=== PATIENT | female | born 1990 | race Caucasian/White ===

== ENCOUNTER 2017-10-10 13:53 | Emergency (ER) | payer MEDICARE, MEDICAID ==
[~2017-10-10] VITALS: Ht 170.2 cm; Wt 81.8 kg
[2017-10-10 14:14] VITALS: BP 104/52
== END 2017-10-10 15:35 | disposition home or self-care (01) ==
LOC: ER 13:54
DX: Z02.89 Encounter for other administrative examinations (principal); F15.90 Other stimulant use, unspecified, uncomplicated; F11.90 Opioid use, unspecified, uncomplicated; Z59.0 Homelessness; Z56.0 Unemployment, unspecified
CPT/HCPCS: 99281

== ENCOUNTER 2019-07-28 17:27 | Emergency (ER) | payer MEDICAID, MEDICARE ==
[~2019-07-28] VITALS: Ht 170.2 cm; Wt 63.0 kg
[2019-07-28 17:43] VITALS: BP 104/64
[2019-07-28 18:29] LABS: URINE HCG NEGATIVE (NEG)
[2019-07-28 18:31] LABS: CLARITY,URINE CLEAR (Clear); COLOR,URINE YELLOW (Yellow); EOSINOPHILS # (AUTO) 0.2 X10'3 (0-0.9); GLUCOSE, URINE NEGATIVE (Neg); KETONES,URINE NEGATIVE (Neg); LEUKOCYTE ESTERASE ,URINE NEGATIVE (Neg); MONOCYTES # (AUTO) 0.6 X10'3 (0-0.9); NITRITES, URINE NEGATIVE (Neg); OCCULT BLOOD,URINE NEGATIVE (Neg); PH,URINE 7.5 (4.8-8.0); PROTEIN,URINE NEGATIVE (Neg)
[2019-07-28 18:33] LABS: BASOPHILS % (AUTO) 0.3 % (0-1); EOSINOPHILS % (AUTO) 2.4 % (0-6); HEMATOCRIT 38.9 % (35.0-45.0); LYMPHOCYTES # (AUTO) 4.1 X10'3 (1.1-4.8); MEAN CORPUSCULAR HEMOGLOBIN 27.5 PG (27.0-31.0); MEAN CORPUSCULAR HGB CONC 33.5 g/dL (33.0-36.5); MEAN PLATELET VOLUME 8.4 FL (7.4-10.4); MONOCYTES % (AUTO) 8.5 % (2-12); NEUTROPHILS # (AUTO) 2.2 X10'3 (1.8-7.7); NEUTROPHILS % (AUTO) 30.8 % (42-75); PLATELET COUNT 203 X10'3 (140-440); RED BLOOD COUNT 4.74 X10'6 (4.20-5.60); RED CELL DISTRIBUTION WIDTH 14.6 % (11.5-14.5)
[2019-07-28 18:37] LABS: UA COLLECTION TYPE CLN CATCH MIDSTREAM
[2019-07-28 18:40] LABS: URINE AMPHETAMINE SCREEN POSITIVE (Neg); URINE BARBITUATE SCREEN NEGATIVE (Neg); URINE BENZODIAZEPINES SCREEN NEGATIVE (Neg); URINE CANNABINOID SCREEN POSITIVE (Neg); URINE COCAINE SCREEN NEGATIVE (Neg); URINE METHADONE SCREEN POSITIVE (Neg); URINE OPIATE SCREEN POSITIVE (Neg); URINE PHENCYCLIDINE SCREEN NEGATIVE (Neg)
[2019-07-28 18:45] LABS: ALANINE AMINOTRANSFERASE 98 U/L (12-78); ALBUMIN 3.3 G/DL (3.4-5.0); ALBUMIN/GLOBULIN RATIO 0.8 (1.1-1.5); ALKALINE PHOSPHATASE 109 IU/L (46-116); ANION GAP 5 (8-16); ASPARTATE AMINO TRANSFERASE 72 U/L (10-37); BILIRUBIN,TOTAL 0.3 MG/DL (0.1-1.0); BLOOD UREA NITROGEN 15 MG/DL (7-18); BUN/CREATININE RATIO 18.1 (6.6-38.0); CALCIUM 8.9 MG/DL (8.5-10.1); CHLORIDE 104 MMOL/L (99-107); CREATININE 0.83 MG/DL (0.40-0.90); POTASSIUM 3.5 MMOL/L (3.5-5.1); SODIUM 138 MMOL/L (135-145); TOTAL CARBON DIOXIDE 29.1 MMOL/L (24-32); TOTAL PROTEIN 7.6 G/DL (6.4-8.2); eGFR 81 ML/MIN
[2019-07-28 18:47] LABS: GLUCOSE 71 MG/DL (70-104)
== END 2019-07-28 18:57 | disposition home or self-care (01) ==
LOC: ER 17:28
DX: R60.0 Localized edema (principal); F19.10 Other psychoactive substance abuse, uncomplicated; F41.9 Anxiety disorder, unspecified; F32.9 Major depressive disorder, single episode, unspecified; F15.90 Other stimulant use, unspecified, uncomplicated; F11.90 Opioid use, unspecified, uncomplicated; Z59.0 Homelessness; Z56.0 Unemployment, unspecified
CPT/HCPCS: 80053; 80305; 81003; 81025; 85025; 99284

== ENCOUNTER 2021-06-18 13:44 | Emergency (ER) | payer BC, MEDICARE ==
[~2021-06-18] VITALS: Ht 170.2 cm; Wt 90.0 kg
[2021-06-18 13:48] VITALS: BP 115/70
[2021-06-18] MEDS ORDERED: PENI250T2 PO (13:54)
[2021-06-18] MEDS ORDERED: NAPR-56 PO (13:54)
== END 2021-06-18 14:49 | disposition home or self-care (01) ==
LOC: ER 13:44
DX: K04.7 Periapical abscess without sinus (principal); K05.30 Chronic periodontitis, unspecified; F41.9 Anxiety disorder, unspecified; F32.A Depression, unspecified; F15.90 Other stimulant use, unspecified, uncomplicated; F11.90 Opioid use, unspecified, uncomplicated; Z56.0 Unemployment, unspecified; Z59.00 Homelessness unspecified; Z79.2 Long term (current) use of antibiotics; Z79.899 Other long term (current) drug therapy
CPT/HCPCS: 99283

== ENCOUNTER 2021-07-21 07:31 | Emergency (ER) | payer BC ==
[~2021-07-21] VITALS: Ht 170.2 cm; Wt 86.4 kg
[2021-07-21] MEDS ORDERED: PENI500T2 PO (08:46)
[2021-07-21 08:53] VITALS: BP 133/77
== END 2021-07-21 08:54 | disposition home or self-care (01) ==
LOC: ER 07:31
DX: K04.7 Periapical abscess without sinus (principal); K02.9 Dental caries, unspecified; F15.90 Other stimulant use, unspecified, uncomplicated; F11.90 Opioid use, unspecified, uncomplicated; Z56.0 Unemployment, unspecified; Z59.00 Homelessness unspecified; Z79.2 Long term (current) use of antibiotics
CPT/HCPCS: 99283

== ENCOUNTER 2022-03-04 11:45 | Emergency (ER) | payer BC, MEDICAID ==
[~2022-03-04] VITALS: Ht 170.2 cm; Wt 86.0 kg
[2022-03-04 11:48] VITALS: BP 119/83
--- NOTE | 2022-03-04 12:22 | NUR ---
TECH PLACED WALKING BOOT ONTO PT, PT STATED THEY COULD STILL FEEL AND WIGGLE THEIR TOES, TECH HAD SUPERVISOR DRY PASTE LOOK AT BOOT TO MAKE SURE EVERYTHING LOOKED OKAY BEFORE PT LEFT.
== END 2022-03-04 12:31 | disposition home or self-care (01) ==
LOC: ER 11:46
DX: S93.402A Sprain of unspecified ligament of left ankle, initial encounter (principal); F15.20 Other stimulant dependence, uncomplicated; F19.10 Other psychoactive substance abuse, uncomplicated; Z56.0 Unemployment, unspecified; Z59.00 Homelessness unspecified; X50.1XXA Overexertion from prolonged static or awkward postures, initial encounter; Y93.89 Activity, other specified; Y92.89 Other specified places as the place of occurrence of the external cause; Y99.8 Other external cause status
CPT/HCPCS: 73610; 99283; L4360

== ENCOUNTER 2022-10-21 22:09 | Emergency (ER) | payer BC, MEDICAID ==
[~2022-10-21] VITALS: Ht 170.2 cm; Wt 79.2 kg
[2022-10-22] MEDS ORDERED: BUPR8TAB4 SL (00:23)
[2022-10-22 00:37] LABS: CLARITY,URINE SLIGHTLY CLOUDY (Clear); GLUCOSE, URINE NEGATIVE (Neg); KETONES,URINE NEGATIVE (Neg); LEUKOCYTE ESTERASE ,URINE NEGATIVE (Neg); NITRITES, URINE NEGATIVE (Neg); OCCULT BLOOD,URINE NEGATIVE (Neg); PH,URINE 5.5 (4.8-8.0); PROTEIN,URINE NEGATIVE (Neg); URINE HCG NEGATIVE (NEG)
--- NOTE | 2022-10-22 00:55 | NUR ---
DIFFICULT STICK FOR LABS. MADE AWARE. PT STATES SHE USE TO USE IVDA
[2022-10-22 01:06] LABS: COLOR,URINE DARK YELLOW (Yellow); UA COLLECTION TYPE CLN CATCH MIDSTREAM
[2022-10-22 01:07] LABS: BACTERIA,URINE 2+ /HPF (Neg); MUCUS STRANDS MODERATE /LPF (Neg); RBC,URINE 0-2 /HPF (0-2); SQUAMOUS EPITHELIAL CELL,UR MANY /LPF (FEW); WBC,URINE 0-4 /HPF (0-4)
[2022-10-22 01:51] LABS: BASOPHILS % (AUTO) 0.3 % (0-1); EOSINOPHILS # (AUTO) 0.2 X10'3 (0-0.9); EOSINOPHILS % (AUTO) 1.4 % (0-6); HEMATOCRIT 43.2 % (35.0-45.0); HEMOGLOBIN 14.5 g/dl (12.0-16.0); LYMPHOCYTES # (AUTO) 3.7 X10'3 (1.1-4.8); LYMPHOCYTES % (AUTO) 32.2 % (21-51); MEAN CORPUSCULAR HEMOGLOBIN 28.6 PG (27.0-31.0); MEAN CORPUSCULAR HGB CONC 33.6 g/dL (33.0-36.5); MEAN CORPUSCULAR VOLUME 85.2 FL (78-98); MEAN PLATELET VOLUME 9.2 FL (7.4-10.4); MONOCYTES # (AUTO) 0.5 X10'3 (0-0.9); MONOCYTES % (AUTO) 4.1 % (2-12); NEUTROPHILS # (AUTO) 7.2 X10'3 (1.8-7.7); PLATELET COUNT 201 X10'3 (140-440); RED BLOOD COUNT 5.08 X10'6 (4.20-5.60); RED CELL DISTRIBUTION WIDTH 14.1 % (11.5-14.5); WHITE BLOOD COUNT 11.6 X10'3 (4.5-11.0)
[2022-10-22 01:59] LABS: ALANINE AMINOTRANSFERASE 23 U/L (12-78); ALBUMIN 3.9 G/DL (3.4-5.0); ALKALINE PHOSPHATASE 94 IU/L (46-116); ANION GAP 9 (8-16); ASPARTATE AMINO TRANSFERASE 16 U/L (10-37); BILIRUBIN,TOTAL 0.6 MG/DL (0.1-1.0); BLOOD UREA NITROGEN 12 MG/DL (7-18); BUN/CREATININE RATIO 13.5 (10.0-20.0); CALCIUM 9.3 MG/DL (8.5-10.1); CHLORIDE 103 MMOL/L (99-107); CREATININE 0.89 MG/DL (0.40-0.90); GLUCOSE 87 MG/DL (70-104); LIPASE 65 U/L (73-393); MAGNESIUM 1.9 MG/DL (1.5-2.4); POTASSIUM 3.4 MMOL/L (3.5-5.1); SODIUM 141 MMOL/L (135-145); TOTAL CARBON DIOXIDE 28.7 MMOL/L (24-32); TOTAL PROTEIN 7.8 G/DL (6.4-8.2); eGFR 74 ML/MIN
[2022-10-22 02:41] VITALS: BP 125/77
== END 2022-10-22 02:42 | disposition home or self-care (01) ==
LOC: ER 22:09
DX: R10.84 Generalized abdominal pain (principal); R30.9 Painful micturition, unspecified; F31.9 Bipolar disorder, unspecified; F15.10 Other stimulant abuse, uncomplicated; Z59.00 Homelessness unspecified; Z56.0 Unemployment, unspecified; Z79.899 Other long term (current) drug therapy
CPT/HCPCS: 36415; 80053; 81001; 81025; 83690; 83735; 84145; 85025; 99283

== ENCOUNTER 2022-11-13 11:29 | Emergency (ER) | payer BC, MEDICAID ==
[~2022-11-13] VITALS: Ht 170.2 cm; Wt 80.4 kg
[~2022-11-13 11:29] MED LIST: BUPR8TAB4 SL
[2022-11-13] MEDS ORDERED: buprenorphine/naloxone 8MG-2MG SUBlingual film SL STA (12:27)
[2022-11-13 13:17] VITALS: BP 104/59
== END 2022-11-13 14:11 | disposition home or self-care (01) ==
LOC: ER 11:30
DX: F11.23 Opioid dependence with withdrawal (principal); Z79.899 Other long term (current) drug therapy
CPT/HCPCS: 99283